=== PATIENT | male | born 2000 | race Caucasian/White ===

== ENCOUNTER 2020-10-13 15:31 | Emergency (ER) | payer BC ==
[~2020-10-13] VITALS: Ht 180.3 cm; Wt 90.0 kg
[2020-10-13 15:58] VITALS: BP 123/75
== END 2020-10-13 17:06 | disposition home or self-care (01) ==
LOC: ER 15:32
DX: M79.641 Pain in right hand (principal); X58.XXXA Exposure to other specified factors, initial encounter; Y93.89 Activity, other specified; Y92.89 Other specified places as the place of occurrence of the external cause; Y99.8 Other external cause status
CPT/HCPCS: 29125; 73130; 99283

== ENCOUNTER 2022-01-31 09:34 | Emergency (ER) | payer BC ==
[~2022-01-31] VITALS: Ht 180.3 cm; Wt 90.9 kg
[2022-01-31 10:14] VITALS: BP 132/88
[2022-01-31 10:16] LABS: BASOPHILS % (AUTO) 0.2 % (0-1); EOSINOPHILS # (AUTO) 0.1 X10'3 (0-0.9); EOSINOPHILS % (AUTO) 1.2 % (0-6); HEMATOCRIT 46.4 % (42.0-52.0); LYMPHOCYTES # (AUTO) 1.7 X10'3 (1.1-4.8); LYMPHOCYTES % (AUTO) 24.8 % (21-51); MEAN CORPUSCULAR HEMOGLOBIN 33.1 PG (27.0-31.0); MEAN CORPUSCULAR HGB CONC 34.5 g/dL (33.0-36.5); MEAN CORPUSCULAR VOLUME 96.1 FL (78-98); MEAN PLATELET VOLUME 7.1 FL (7.4-10.4); MONOCYTES # (AUTO) 0.6 X10'3 (0-0.9); MONOCYTES % (AUTO) 7.9 % (2-12); NEUTROPHILS # (AUTO) 4.6 X10'3 (1.8-7.7); NEUTROPHILS % (AUTO) 65.9 % (42-75); PLATELET COUNT 316 X10'3 (140-440); RED BLOOD COUNT 4.83 X10'6 (4.70-6.10)
--- NOTE | 2022-01-31 10:16 | NUR ---
PATIENT STATES HE HAS BEEN FEELING SOB ON EXERTION SINCE 399 TODAY AND WAS UNABLE TO GO TO WORK. NOT VACCINATED FOR COVID. STATES HE WAS WITH HIS AT A HOSPITAL LAST WEEK AFTER SHE HAD SURGERY AND IS CONCERNED THAT HE MAY HAVE BEEN EXPOSED TO SOMETHING WHILE AT THE FACILITY. IS NOT SYMPTOMATIC AT THIS TIME.
[2022-01-31 10:28] LABS: ALANINE AMINOTRANSFERASE 31 U/L (12-78); ALBUMIN 4.2 G/DL (3.4-5.0); ALBUMIN/GLOBULIN RATIO 1.2 (1.1-1.5); ALKALINE PHOSPHATASE 47 IU/L (46-116); ANION GAP 12 (8-16); ASPARTATE AMINO TRANSFERASE 17 U/L (10-37); BILIRUBIN,TOTAL 0.4 MG/DL (0.1-1.0); BLOOD UREA NITROGEN 12 MG/DL (7-18); BUN/CREATININE RATIO 16.4 (5.4-32.0); CALCIUM 9.4 MG/DL (8.5-10.1); CHLORIDE 104 MMOL/L (99-107); CREATININE 0.73 MG/DL (0.60-1.10); GLUCOSE 101 MG/DL (70-104); POTASSIUM 4.6 MMOL/L (3.5-5.1); SODIUM 142 MMOL/L (135-145); TOTAL CARBON DIOXIDE 25.9 MMOL/L (24-32); TOTAL PROTEIN 7.8 G/DL (6.4-8.2); eGFR > 90 ML/MIN
[2022-01-31 11:09] LABS: D-DIMER < 0.19 MG/L FEU (0-0.50)
== END 2022-01-31 12:12 | disposition home or self-care (01) ==
LOC: ER 09:35
DX: R06.00 Dyspnea, unspecified (principal); Z20.822 Contact with and (suspected) exposure to COVID-19; R07.89 Other chest pain; R51.9 Headache, unspecified; R06.02 Shortness of breath
CPT/HCPCS: 36415; 71045; 80053; 84484; 85025; 85379; 87635; 93005; 99285; C9803